=== PATIENT | female | born 1995 | race Two or more races ===

== ENCOUNTER 2024-04-01 18:36 | Emergency (ER) | payer OTHER ==
[2024-04-01 18:52] VITALS: RESP 18; BMI 28.9
[2024-04-01] MEDS ORDERED: FAMOTIDINE 20 MG TABLET ONE (19:54)
[2024-04-01] MEDS ORDERED: LORATADINE 10 MG TABLET ONE (19:54)
[2024-04-01] MEDS: FAMOTIDINE 20 MG TABLET PO ONE (19:58)
[2024-04-01] MEDS: LORATADINE 10 MG TABLET PO ONE (19:58)
[2024-04-01 21:38] VITALS: BP 126/72; PULSE 86; TEMP 97.9
== END 2024-04-01 22:47 | disposition home or self-care (01) ==
LOC: JERFT 18:36 → JER 22:47
DX: O9A.213 Injury, poisoning and certain other consequences of external causes complicating pregnancy, third trimester (principal); T78.1XXA Other adverse food reactions, not elsewhere classified, initial encounter; R09.89 Other specified symptoms and signs involving the circulatory and respiratory systems; Z3A.29 29 weeks gestation of pregnancy
CPT/HCPCS: 99283-25

== ENCOUNTER 2024-04-27 01:58 | Emergency (ER) | payer OTHER ==
[2024-04-27 02:01] VITALS: BP 107/71; PULSE 69; RESP 18; TEMP 97.8; BMI 30.7
== END 2024-04-27 03:02 | disposition home or self-care (01) ==
LOC: JER 01:58
DX: O99.891 Other specified diseases and conditions complicating pregnancy (principal); R21 Rash and other nonspecific skin eruption; T78.40XA Allergy, unspecified, initial encounter; Z3A.32 32 weeks gestation of pregnancy
CPT/HCPCS: 99283-25

== ENCOUNTER 2024-06-06 14:24 | Inpatient (IN) | payer OTHER ==
[2024-06-06] MEDS: DEXTROSE 5%-LACTATED RINGERS 1,000 ML IV SCH (14:30)
[2024-06-06] MEDS: AMPICILLIN - 2 GM in SODIUM CHLORIDE 100 ML IVPB ONE (14:35)
[2024-06-06] MEDS: OXYTOCIN 20 UNITS in 0.9% NS 20 UNIT/1,000 ML INFUS.BAG IV SCH (14:45)
[2024-06-06] MEDS ORDERED: BENZOCAINE 28 GM HEMORRHOIDAL OINTMENT TP PRN (15:04)
[2024-06-06] MEDS ORDERED: oxyCODONE HCL 5 MG TABLET PO PRN (15:04)
[2024-06-06] MEDS ORDERED: ACETAMINOPHEN 325 MG TABLET (FP) PO PRN (15:04)
[2024-06-06] MEDS ORDERED: METHYLERGONOVINE MALEATE 0.2 MG/1 ML AMP IM PRN (15:04)
[2024-06-06] MEDS ORDERED: WITCH HAZEL 50% (TUCKS) 40 PAD/JAR PAD TP PRN (15:04)
[2024-06-06] MEDS ORDERED: BISACODYL 10 MG SUPP.RECT RC PRN (15:04)
[2024-06-06] MEDS ORDERED: OXYTOCIN 20 UNITS in 0.9% NS 20 UNIT/1,000 ML INFUS.BAG IV ONE ×2 (15:43→17:02)
[2024-06-06 16:16] VITALS: BMI 32.0
[2024-06-06 16:16] LABS: BASO % 0.2 % (0-2.0); EOS % 0.2 % (0-4.5); HEMATOCRIT 38.3 % (32.4-45.2); LYMPH % 12.3 % (8-40); MCH 31.3 pg (25.7-33.7); MCHC 33.9 g/dl (32.0-36.0); MEAN CELL VOLUME 92.4 fl (80-96); MEAN PLT VOLUME 8.5 fl (7.5-11.1); MONO % 7.2 % (3.8-10.2); NEUT % 80.1 % (42.8-82.8); PLATELET COUNT 176 10^3/uL (134-434); RBC 4.14 M/mm3 (3.60-5.2); RDW 13.6 % (11.6-15.6); WHITE BLOOD COUNT 11.5 K/mm3 (4.0-10.0)
[2024-06-06 16:20] LABS: INR 0.92 (0.83-1.09); PROTHROMBIN TIME (PATIENT) 10.4 SEC (9.7-13.0)
[2024-06-06 16:23] LABS: ACTIVATED PTT 31.2 SECONDS (25.2-36.5)
[2024-06-06 16:26] LABS: POTASSIUM 3.8 mmol/L (3.5-5.1)
[2024-06-06 16:27] LABS: CALCIUM 8.6 mg/dL (8.5-10.1)
[2024-06-06 16:28] LABS: BLOOD UREA NITROGEN 8.9 mg/dL (7-18)
[2024-06-06 16:31] LABS: CREATININE 0.6 mg/dL (0.55-1.3)
[2024-06-06] MEDS ORDERED: NIFEdipine E.R. 30 MG TABLET PO ONE (17:00)
[2024-06-06] MEDS: NIFEdipine E.R. 30 MG TABLET PO STA (17:00)
[2024-06-06 17:30] LABS: HIV INTERPRETATION NEGATIVE (NEGATIVE)
[2024-06-06] MEDS: BENZOCAINE 20% 57 GM BOTTLE TP PRN (19:40)
[2024-06-07] MEDS: IBUPROFEN 600 MG TABLET (FP) PO PRN (01:32)
[2024-06-07 07:42] LABS: BASO % 0.3 % (0-2.0); EOS % 0.9 % (0-4.5); HEMOGLOBIN 12.3 GM/dL (10.7-15.3); MCH 31.7 pg (25.7-33.7); MEAN CELL VOLUME 90.6 fl (80-96); MEAN PLT VOLUME 8.5 fl (7.5-11.1); MONO % 8.3 % (3.8-10.2); NEUT % 72.5 % (42.8-82.8); PLATELET COUNT 166 10^3/uL (134-434); RBC 3.87 M/mm3 (3.60-5.2); RDW 13.3 % (11.6-15.6); WHITE BLOOD COUNT 10.8 K/mm3 (4.0-10.0)
[2024-06-07] MEDS: PRENATAL VITAMINS W/ FOLIC ACID TABLET (FP) PO SCH (11:04)
[2024-06-07] MEDS: FERROUS SO4 325 MG TABLET (FP) PO SCH (11:05)
[2024-06-07] MEDS: DIPHTH,PERTUSS(ACELL),TET 0.5 ML DISP.SYRIN IM ONE (12:16)
[2024-06-07] MEDS ORDERED: SENNOSIDES/DOCUSATE COMBO (SENNA PLUS) TABLET (UD) PO PRN (22:00)
[2024-06-07 22:35] VITALS: RESP 18
[2024-06-08 09:05] VITALS: BP 128/84; PULSE 80; TEMP 98.8
== END 2024-06-08 13:30 | disposition home or self-care (01) | DRG 560 ==
LOC: JLDR 14:24 → J3W 17:20
PROVIDERS: ADMIT Obstetrics & Gynecology; ATTEND Obstetrics & Gynecology
PROC: 10E0XZZ Delivery of Products of Conception, External Approach (ICD-10-PCS; principal; 2024-06-06)
DX: O70.0 First degree perineal laceration during delivery (principal); Z3A.38 38 weeks gestation of pregnancy; Z37.0 Single live birth
CPT/HCPCS: 36415; 59409; 80048; 85025; 85610; 85730; 86780; 86850; 86900; 86901; 87389; 90715